=== PATIENT | male | born 1955 | race Caucasian/White ===

== ENCOUNTER 2017-03-06 12:55 | Emergency (ER) | payer OTHER ==
[2017-03-06 13:04] VITALS: BP 149/89; PULSE 85; RESP 28; TEMP 97.9
[2017-03-06] MEDS ORDERED: IPRATROPIUM/ALBUTEROL 3 ML DEYVIAL ONE (13:13)
[2017-03-06] MEDS ORDERED: IPRATROPIUM/ALBUTEROL 3 ML DEYVIAL IH ONE ×2 (13:16→13:51)
--- NOTE | 2017-03-06 13:42 | EDPHY ---
H & P Stated Complaint: cough past week; opn day 3 of Z pack; not improving; chills aches HPI/ROS: CHIEF COMPLAINT: Cough History by patient HISTORY OF PRESENT ILLNESS: 61-year-old man with a history of asthma presents complaining of persistent productive cough and wheezing. Patient states he was in [place] last week began feeling his asthma acting up. He had several days of subjective fevers and chills and so he was started on Z-Sander and prednisone by his primary care physician 3 days ago. Subsequently he does not feel he is improved and he is worried he might have a pneumonia. He denies any nausea or vomiting. Denies any chest pain. He gets some relief from using his inhalers. He says his oxygen saturation is always around 88%. He denies any leg swelling. He denies orthopnea. He has never been admitted for his asthma before. He quit smoking over 25 years ago. REVIEW OF SYSTEMS: As in HPI, and all other systems reviewed and are negative Source: Patient - Personal History Current Tetanus/Diphtheria Vaccine: No - Medical/Surgical History Hx Asthma: Yes Hx Chronic Respiratory Disease: No Hx Diabetes: No Hx Cardiac Disease: No Hx Renal Disease: No Hx Cirrhosis: No Hx Alcoholism: No Hx HIV/AIDS: No Hx Splenectomy or Spleen Trauma: No Other PMH: Asthma, several episodes of pneumonia , hypertension. Shoulder mass - Family History Significant Family History: No pertinent family hx - Social History Smoking Status: Former smoker - Physical Exam Exam: General Appearance: Alert, morbidly obese, speaking full sentences. Eyes: Pupils equal and round no pallor or injection. ENT, Mouth: Mucous membranes moist. Respiratory: Normal, effort, There are no retractions, lungs are clear but with poor air movement throughout. Cardiovascular: Regular rate and rhythm. Gastrointestinal: Abdomen is soft and nontender, no masses, bowel sounds normal. Neurological: Awake, alert and oriented x 3, no pronator drift, normal gait, no pronator drift Skin: Warm and dry, no rashes. Musculoskeletal: Neck is supple nontender. Extremities are symmetrical, full range of motion. Psychiatric: Patient has normal affect, there is no agitation. Constitutional: Initial Vital Signs Temperature (C) 36.6 C 03/06/17 12:57 Heart Rate 85 03/06/17 12:57 Respiratory Rate 28 H 03/06/17 12:57 Blood Pressure 149/89 H 03/06/17 12:57 O2 Sat (%) 87 L 03/06/17 12:57 O2 Delivery Mode Room Air Allergies/Adverse Reactions: No Known Allergies Allergy (Verified 03/06/17 13:04) Home Medications: Medication Instructions Recorded ALBUTEROL SULFATE 06/08/11 Lasix 06/08/11 Amlodipine Besylate 04/05/16 Breo Ellipta 200-25 Mcg INH 04/05/16 Duoneb (RX) 04/05/16 Montelukast Sodium 04/05/16 Mucinex 600 MG (OTC) 04/05/16 predniSONE [predniSONE TAPER] 04/26/16 Hyzaar 100-25 Tablet 03/06/17 Medical Decision Making - Diagnostics Imaging: I viewed and interpreted images myself ED Course/Re-evaluation: 61-year-old man with history of asthma presents with persistent cough and shortness of breath despite prednisone and azithromycin. Chest x-ray was obtained which was concerning for congestive heart failure but no pneumonia. Patient was noted to be persistently hypoxic without restrictions between 87 and 89% in the ED. He was given a DuoNeb x2 with some symptomatic relief and on the exam started to have some scattered crackles. Because of the fact the patient is not getting better on his usual Respiratory medications and the chest x-ray findings I was concerned about congestive heart failure rather than a primary pulmonary problem however the patient refused any cardiac workup including EKG or labs. He says he has a clerical adjudicator who he will try to see tomorrow. We discussed the risks of not getting workup and media treatment if he does indeed have an acute congestive heart failure including worsening, arrhythmia and . Patient understands, but is clear that he is refusing further workup at this time and he will follow up with his clerical adjudicator and primary care physician. I am recommending he stay on 40 mg of prednisone for 2 more days as he was supposed to begin tapering tomorrow. We also discussed return precautions. Patient lives with his adult daughter so he will not be alone. - Data Points Medications Given: Discontinued Medications Albuterol/Ipratropium (Duoneb) 3 ml IH EDNOW ONE Stop: 03/06/17 13:17 Last Admin: 03/06/17 13:20 Dose: 3 ml Albuterol/Ipratropium (Duoneb) 3 ml IH EDNOW ONE Stop: 03/06/17 13:52 Last Admin: 03/06/17 13:53 Dose: 3 ml Departure - Departure Disposition: Home, Routine, Self-Care Clinical Impression: Cough, Asthma attacks lasting more than 24 hours Instructions: Asthma (ED), Dyspnea (ED) Additional Instructions: You were seen by Dr. Dimple Chapman today. Please be seen by your clerical adjudicator as soon as possible to evaluate for congestive heart failure and to make sure your persistent pulmonary symptoms are not due to a heart problem. Please also follow up with your primary care physician. In the meantime, continue to take prednisone at 40 mg a day instead of tapering for the next 2 days. Return immediately for any worsening or new concerns. Referrals: Olga Chau MD [Primary Care Provider] - As per Instructions
[2017-03-06 14:27] VITALS: O2SAT 86
== END 2017-03-06 14:23 | disposition home or self-care (01) ==
LOC: CED 12:55
DX: J45.909 Unspecified asthma, uncomplicated (principal); Z87.891 Personal history of nicotine dependence
CPT/HCPCS: 71020-PO

== ENCOUNTER 2017-05-13 06:42 | Day surgery (SDC) | payer OTHER ==
[2017-05-13] MEDS ORDERED: LR 1,000 ML IV ONE (07:26)
[2017-05-13] MEDS ORDERED: LIDOCAINE 1% 2 ML INJ ID PRN (07:26)
--- NOTE | 2017-05-13 08:04 | PDANEPAE ---
ANE History of Present Illness periesophageal mass ANE Past Medical History - Cardiovascular History Hx Hypertension: Yes Hx Arrhythmias: No Hx Chest Pain: No Hx Coronary Artery / Peripheral Vascular Disease: No Hx CHF / Valvular Disease: No Hx Palpitations: No Cardiovascular History Comment: L VENTRICULAR HYPERTROPHY. INCOMPLETE R BBBB - Pulmonary History Hx COPD: Yes Hx Asthma/Reactive Airway Disease: Yes Hx Recent Upper Respiratory Infection: No Hx Oxygen in Use at Home: No Hx Sleep Apnea: Yes Sleep Apnea Screening Result - Last Documented: Positive Pulmonary History Comment: PNEUMONIA 11/2015. URI 02/2017. POSSIBLE SHANKAR TO HAVE FU - Neurologic History Hx Cerebrovascular Accident: No Hx Seizures: No Hx Dementia: No - Endocrine History Hx Diabetes: No Obesity: severe - Renal History Hx Renal Disorders: No - Liver History Hx Hepatic Disorders: No - Neurological & Psychiatric Hx Hx Neurological and Psychiatric Disorders: No - Cancer History Hx Cancer: Yes - Congenital Disorder History Hx Congenital Disorders: No - GI History Hx Gastrointestinal Disorders: No - Other Health History Other Health History: ALLERGIC RHINITIS - Chronic Pain History Chronic Pain: No - Surgical History Prior Surgeries: excision of neck mass 03/2016. HERNIA 1961 ANE Review of Systems - Exercise capacity METS (RN): 1 METS ANE Patient History - Allergies Allergies/Adverse Reactions: No Known Allergies Allergy (Verified 03/06/17 13:04) - Home Medications Home Medications: ALBUTEROL SULFATE PRN 06/08/11 [Last Taken 05/13/17] Lasix DAILY06 06/08/11 [Last Taken 1 Day Ago] Amlodipine Besylate DAILY06 04/05/16 [Last Taken 05/13/17] Duoneb (RX) PRN 04/05/16 [Last Taken 05/13/17] Montelukast Sodium HS 04/05/16 [Last Taken 05/12/17] Mucinex 600 MG (OTC) BID 04/05/16 [Last Taken 05/12/17] Hyzaar 100-25 Tablet DAILY06 03/06/17 [Last Taken 05/12/17] Bystolic DAILY06 05/05/17 [Last Taken 05/13/17] - NPO status NPO Since - Liquids (Date): 05/12/17 NPO Since - Liquids (Time): 19:00 NPO Since - Solids (Date): 05/12/17 NPO Since - Solids (Time): 19:00 - Smoking Hx Smoking Status: Former smoker - Family Anes Hx Family Hx Anesthesia Complications: NONE ANE Labs/Vital Signs - Vital Signs Blood Pressure: 129/89 Heart Rate: 67 Respiratory Rate: 20 O2 Sat (%): 91 Height: 185.42 cm Weight: 151.953 kg ANE Physical Exam - Airway Neck exam: FROM Mallampati Score: Class 3 Mouth exam: normal dental/mouth exam - Pulmonary Pulmonary: no respiratory distress - Cardiovascular Cardiovascular: regular rate and rhythym - ASA Status ASA Status: III ANE Anesthesia Plan Anesthesia Plan: GA with mask
[2017-05-13] MEDS ORDERED: PROPOFOL 200 MG/20 ML VIAL ONE ×5 (08:06→09:01)
--- NOTE | 2017-05-13 08:06 | PDGENHP ---
History & Physical Chief Complaint: abnormal imaging History of Present Illness: 61 year old male who recently found to have a cystic lesion- periesopahgeal. No complaints of dysphagia, odynophagia, etc. Pertinent Past, Social, Family History: SoHx: + alc. FamHx: No esophageal cancer. PMHx: CAD, asthma Relevant Physical Exam: HEENT: anicteric. CV: RRR + s1s2. Lungs:CTAB. Abd: soft, nt, + bs Cardiorespiratory Assessment: ASA: 3. Mal:3
[2017-05-13] MEDS ORDERED: INDOMETHACIN 50 MG SUPP PR PRN (08:07)
[2017-05-13] MEDS ORDERED: NS 500 ML IV SCH (08:15)
[2017-05-13] MEDS ORDERED: levOFLOXACIN 500 MG/DEXTROSE/100 ML BAG IV ONE (08:39)
[2017-05-13] MEDS ORDERED: fentaNYL 100 MCG/2 ML INJ IVP PRN (09:14)
[2017-05-13] MEDS ORDERED: ONDANSETRON 4 MG/2 ML VIAL IVP PRN (09:14)
[2017-05-13] MEDS ORDERED: NALOXONE HCL 0.4 MG/ML INJ IVP PRN (09:14)
--- NOTE | 2017-05-13 09:30 | POSTOPPROG ---
Post Op Note Date of Operation: 05/13/17 Surgeon: Misael Concepcion Anesthesia: IV Sedation Pre-op Diagnosis: abnl imaging Post-op Diagnosis: abnl imaging, gastritis, periesophageal lesion Indication: abnl imaging Procedure: EGD with bx, EUS FNA Findings: gastritis, periesophageal lesion Inf/Abcess present in the surg proc area at time of surgery?: No EBL: Minimal Specimen(s): gastritis FNA of periesophageal lesion
--- NOTE | 2017-05-13 09:37 | POSTANESTH ---
Post Anesthetic Evaluation Cardiovascular Status: Normal, Stable Respiratory Status: Normal, Stable Level of Consciousness/Mental Status: Can Participate in Eval Pain Control: Adequate, Prn Tx Ordered Nausea/Vomiting Control: Adequate, Prn Tx Ordered Complications Possibly Related to Anesthesia: None Noted
[2017-05-13 09:43] VITALS: TEMP 97.7
[2017-05-13 09:48] VITALS: O2SAT 92
[2017-05-13 10:17] VITALS: BP 132/98; PULSE 74; RESP 17
--- NOTE | 2017-05-13 13:56 | GPN ---
[f rep st] PROCEDURE NOTE DATE OF PROCEDURE: 05/13/2017 PROCEDURE: Esophagogastroduodenoscopy with biopsy, endoscopic ultrasound with fine-needle aspiration. INDICATION: Mr. Maya is a 61-year-old male who presents for evaluation of abnormal imaging. He had a recent CT scan which showed an approximate 3 x 3 cm enlarging periesophageal lesion. He presents for further evaluation and possible tissue acquisition. CONSENT: Risks, benefits, and alternatives of the procedure were discussed in great detail with the patient. Risks of infection, bleeding, perforation, and sedation were discussed. All questions answered and informed consent was obtained. MEDICATIONS: Propofol. Please see Anesthesiology record for details. Levaquin 500mg IV x 1. ESTIMATED BLOOD LOSS: Insignificant. ESOPHAGOGASTRODUODENOSCOPY EXAMINATION: The Olympus upper endoscope was introduced into the mouth and advanced to the esophagus. The proximal, mid, and distal esophagus were normal in appearance. The stomach was entered and closely examined, including retroflexed views of the angularis, cardia, and fundus. A small hiatal hernia was noted. The mucosa of the whole exam in stomach was erythematous in a patchy distribution, and biopsies were taken. The duodenal bulb and second portion of duodenum were normal in appearance. ENDOSCOPIC ULTRASOUND EXAMINATION: The Olympus linear and radial echoendoscope was introduced in the mouth and advanced to the 2nd portion of the duodenum. The esophagus, stomach, and duodenum were visualized endosonographically. The pancreas was examined from the uncinate process to the tail where the spleen was seen. Hyperechoic foci were noted throughout the pancreas. The main pancreatic duct was not dilated. No cystic lesions were noted. The common bile duct was seen without stone, stricture, or stenosis. The gallbladder was normal. No obvious liver lesions were noted. No suspicious peripancreatic or periportal nodes were appreciated. At 28 cm from the gums, an approximate 3 x 3 well circumcised, circular lesion was noted. It had a well-defined wall layers with the center being hypoechoic. In certain echoplanes it appeared to be contiguous with the adventitia. Doppler was used to rule out any intervening vessels. Three transesophageal passes were made with a iSentium 25-gauge needle into the lesion. Cytology was present. Preliminary report did reveal lymphocytes. One of the passes was placed directly into the flow cytometry. IMPRESSION: 1. Gastritis, status post biopsies. 2. Hiatal hernia. 3. Periesophageal lesion- status post fine needle aspiration. Lymphoma versus duplication cyst versus bronchogenic cyst versus other? RECOMMENDATIONS: 1. Follow up on FNA and biopsy results. 2. Ciprofloxacin 500mg po BID x 5 days. /[id number]/MODL MTDD
[2017-05-18 14:22] LABS: FINAL DIAGNOSIS See Comments; MICROSCOPIC DESCRIPTION See Comments
== END 2017-05-13 10:52 | disposition home or self-care (01) ==
LOC: FSGY 06:42
PROVIDERS: ATTEND Internal Medicine Gastroenterology
PROC: 0DB68ZX Excision of Stomach, Via Natural or Artificial Opening Endoscopic, Diagnostic (ICD-10-PCS; principal; 2017-05-13 08:00)
PROC: 0D958ZX Drainage of Esophagus, Via Natural or Artificial Opening Endoscopic, Diagnostic (ICD-10-PCS; principal; 2017-05-13 08:00)
DX: K22.9 Disease of esophagus, unspecified (principal); K29.70 Gastritis, unspecified, without bleeding; K44.9 Diaphragmatic hernia without obstruction or gangrene; E66.01 Morbid (severe) obesity due to excess calories; Z68.41 Body mass index [BMI] 40.0-44.9, adult; J44.9 Chronic obstructive pulmonary disease, unspecified; J45.50 Severe persistent asthma, uncomplicated; I10 Essential (primary) hypertension; I45.0 Right fascicular block; I45.5 Other specified heart block; Z87.891 Personal history of nicotine dependence
CPT/HCPCS: 88184-90; 88185-91; J1956; J2704